=== PATIENT | female | born 1970 | race Caucasian/White ===

== ENCOUNTER 2022-04-17 18:13 | Emergency (ER) | payer OTHER, SELFPAY ==
[2022-04-17 18:24] VITALS: BP 148/93; PULSE 78; RESP 16; TEMP 37; O2SAT 98; BMI 24.3
--- NOTE | 2022-04-17 18:30 | DI.RAD.S_ITS ---
PROCEDURE: XR FINGER LT MIN 2V INDICATIONS: cut left TECHNIQUE: AP hand, 2 views of the 2nd finger(s) acquired. COMPARISON: None. FINDINGS: Bones: No fractures or dislocations. No suspicious bony lesions. Degenerative changes are seen throughout, which are most prominent involving the 1st carpometacarpal joint. Milder degenerative changes are seen elsewhere. Soft tissues: Soft tissue injury is seen involving the distal tip of the 2nd finger. No radiopaque foreign bodies are seen. Overlying bandaging material can be seen. IMPRESSION: 2nd finger soft tissue injury, without an associated bony injury identified by plain film. No radiopaque foreign bodies are seen. Dictated by: Colten Kwon M.D. on 04/17/2022 at 17:45 Approved by: Colten Kwon M.D. on 04/17/2022 at 17:46
[2022-04-17] MEDS: TET,DIPH,PERTUSS(ACELL),VAC/PF 0.5 ML SYRINGE IM (18:58)
--- NOTE | 2022-04-17 19:03 | ED.WOUNDLAC ---
HPI - Wound/Laceration General Chief Complaint: Wound/Laceration Stated Complaint: Chopped Tip Off Left Pointer Time Seen by Provider: 04/17/22 18:33 Source: patient Mode of arrival: Family Vehicle Limitations: no limitations History of Present Illness HPI narrative: 51-year-old female was here for evaluation of an injury that she sustained when she cut the tip of her left index finger. The patient does need an updated tetanus shot. She did wash it and cover with a bandage prior to arrival. Related Data Allergies Allergy/AdvReac Type Severity Reaction Status Date / Time codeine Allergy Hives Verified 04/17/22 18:29 Sulfa (Sulfonamide Allergy Hives Verified 04/17/22 18:29 Antibiotics) sulfamethoxazole Allergy Hives Verified 04/17/22 18:29 [From Septra] trimethoprim [From Septra] Allergy Hives Verified 04/17/22 18:29 hydromorphone [From Dilaudid] AdvReac Vomiting Verified 04/17/22 18:29 Review of Systems Musculoskeletal Musculoskeletal: Reports system reviewed and no additional complaints, except as documented Integumentary/Breasts Skin/Breast: Reports system reviewed and no additional complaints, except as documented Neurologic Neurologic: Reports system reviewed and no additional complaints, except as documented Hematologic/Lymphatic On Anticoagulants: No Patient History Social History Smoking Status: Never smoker Smoking Status: Never smoker Substance Use Type: does not use Exam Initial Vital Signs Initial Vital Signs: Vital Signs Temperature 98.6 F 04/17/22 18:24 Pulse Rate 78 04/17/22 18:24 Respiratory Rate 16 04/17/22 18:24 Blood Pressure 148/93 H 04/17/22 18:24 Pulse Oximetry 98 04/17/22 18:24 HENNE Head: normal to inspection and normocephalic Cardio Pulses: radial pulses present on the left Skin Other: Patient does have a superficial skin avulsion on the radial aspect of the left index finger. It is the distal aspect of the finger. Does involve the fingernail. Neuro Sensory Exam: no sensory deficits noted Extrem Other: Superficial skin avulsion to the distal aspect of the left index finger Course Orders Ordered: ED Orders 04/17/22 18:30 XR finger LT min 2V Stat Discontinued Medications Acetaminophen (Acetaminophen 325 Mg Tablet) 650 mg PO NOW ONE Stop: 04/17/22 19:04 Last Admin: 04/17/22 19:09 Dose: 650 mg Documented by: VANDANA Diphtheria/Tetanus/Acell Pertussis (Tet,Diph,Pertuss(Acell),Vac/Pf 0.5 Ml Syringe) 0.5 ml IM .ONCE ONE Stop: 04/17/22 18:30 Last Admin: 04/17/22 18:58 Dose: 0.5 ml Documented by: VANDANA Vital Signs Vital signs: Vital Signs - 8 hr 04/17/22 18:24 04/17/22 19:17 Temperature 98.6 F Pulse Rate 78 83 Respiratory Rate 16 18 Blood Pressure 148/93 H 134/89 Pulse Oximetry 98 97 MDM - Wound/Laceration Imaging Data Extremity x-ray #1: Radiologist's Impression: [address] [address] XRay Report Signed Patient: Bridget White MR#: [id number] : 1970 Acct:[id number] Age/Sex: 51 / F Date of Service: 04/17/22 Loc: ED Accession Number: [id number] ?? Procedure: XR finger LT min 2V Ordering Provider: Carlos Palacios D.O. PROCEDURE:? XR FINGER LT MIN 2V ? INDICATIONS:? cut left ? TECHNIQUE:? AP hand, 2 views of the 2nd finger(s) acquired.? ? COMPARISON:? None. ? FINDINGS:? ? Bones:? No fractures or dislocations.? No suspicious bony lesions.? ? Degenerative changes are seen throughout, which are most prominent involving the 1st carpometacarpal joint.? Milder degenerative changes are seen elsewhere.? ? Soft tissues:? Soft tissue injury is seen involving the distal tip of the 2nd finger.? No radiopaque foreign bodies are seen.? Overlying bandaging material can be seen.? IMPRESSION:? 2nd finger soft tissue injury, without an associated bony injury identified by plain film. ? No radiopaque foreign bodies are seen.? ? ? Dictated by: Colten Kwon M.D. on 04/17/2022 at 17:45 ? ? Approved by: Colten Kwon M.D. on 04/17/2022 at 17:46? MDM Narrative Medical decision making narrative: No fractures noted on the x-rays. Her tetanus shot was updated. It was a superficial skin avulsion on the distal aspect of the finger that does not involve the nail bed. Small amount of Gelfoam was placed over the area was covered with a bandage. Unfortunately not amendable to stitches. Patient was given care instructions return precautions. She expressed understanding and agreement. Discharge Plan Departure Patient Disposition: Home Clinical Impression: Avulsion of skin Activity Restrictions/Additional Instructions: I would leave the bandage it was placed today in place for the next 24 hours. After that you can take it off. You can continue to put topical antibiotic ointment over the area and a regular bandage is needed. Your tetanus was updated today. Contact your primary doctor for a follow-up. Return to the emergency department for any new or worsening symptoms. Referrals: Leela Aviles MD [Primary Care Provider] -
[2022-04-17] MEDS: ACETAMINOPHEN 325 MG TABLET 650 MG PO (19:09)
[2022-04-17 19:17] VITALS: BP 134/89; PULSE 83; RESP 18; O2SAT 97
== END 2022-04-17 19:12 | disposition home or self-care (01) ==
PROVIDERS: Emergency Provider Emergency Medicine; PCP Internal Medicine
DX: S61.211A Laceration without foreign body of left index finger without damage to nail, initial encounter (principal); W26.9XXA Contact with unspecified sharp object(s), initial encounter; Z23 Encounter for immunization
CPT/HCPCS: 73140; 90471; 99283; 90715